=== PATIENT | female | born 1960 | race Caucasian/White ===

== ENCOUNTER 2020-07-07 11:53 | Emergency (ER) | payer MEDICARE ==
[~2020-07-07] VITALS: Ht 162.6 cm; Wt 65.0 kg
[2020-07-07] MEDS ORDERED: ACETAMINOPHEN 325MG TABLET PO ONE (15:15)
[2020-07-07 16:20] VITALS: BP 161/90
== END 2020-07-07 16:28 | disposition home or self-care (01) ==
LOC: ER 11:53
DX: S09.8XXA Other specified injuries of head, initial encounter (principal); G89.29 Other chronic pain; M54.5 Low back pain; I10 Essential (primary) hypertension; W01.0XXA Fall on same level from slipping, tripping and stumbling without subsequent striking against object, initial encounter; Y93.89 Activity, other specified; Y92.481 Parking lot as the place of occurrence of the external cause
CPT/HCPCS: 71045; 74176; 99285